=== PATIENT | female | born 1975 | race Caucasian/White ===

== ENCOUNTER 2017-11-22 13:51 | Emergency (ER) | payer MEDICAID ==
[2017-11-22] MEDS: IBUPROFEN 600 MG TAB PO (16:50)
== END 2017-11-22 16:50 | disposition home or self-care (01) ==
LOC: FTE 13:51
DX: J20.9 Acute bronchitis, unspecified (principal); J03.90 Acute tonsillitis, unspecified; E11.9 Type 2 diabetes mellitus without complications
CPT/HCPCS: 99284; Z7502